=== PATIENT | male | born 2005 | race African-American/Black ===

== ENCOUNTER 2024-10-18 12:43 | Emergency (ER) | payer SELFPAY ==
--- OUTSIDE RECORDS SUMMARY | 2024-10-18 12:47 | XMS REPORT | Continuity of Care Document ---
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 [id number] 2018 00:00:00 Encounters Start Date/Time End Date/Time Encounter Type Admission Type Attending Clinicians Care Facility Care Department Encounter ID Source 2023-05-08 13:41:00 2023-05-08 17:39:00 Emergency ER Pao Avelar [facility] [id number] [facility] 2021-09-26 02:24:00 2021-09-26 02:24:00 Outpatient SHIMEK_STACY [facility] [id number] [facility] 2021-01-02 04:17:00 2021-01-02 04:17:00 Outpatient SHIMEK_STACY [facility] [id number] [facility] 2017-12-30 09:37:00 2017-12-30 09:37:00 Outpatient SHIMEK_MARY _[facility] [id number] [facility] 2015-04-12 11:29:00 2015-04-12 11:29:00 Outpatient ROCIO BARTH [facility] [id number] [facility] 2004-06-25 21:37:00 2004-06-26 02:10:00 Emergency ER ZAHRA BURCIAGA [facility] [id number] [facility] 2003 09:51:00 2003 13:00:00 Inpatient ARLENE BOUDREAUX MAI [facility] [id number] [facility]
[2024-10-18] MEDS ORDERED: ONDANSETRON 4 MG (ODT) TAB ONE (14:35)
--- NOTE | 2024-10-18 15:09 | EDPHYS ---
Physician Documentation [facility] Name: Tony Vega Age: 19 yrs Sex: Male : 2005 Arrival Date: 10/18/2024 Time: 12:43 Bed 10 Private MD: ED Physician Emily Pineda HPI: 10/18 15:24 This 19 yrs old Black Male presents to ER via Ambulatory with complaints of Weakness, gb1 Nausea, Vomiting. 15:24 19-year-old -[place] male that felt nauseated at work and more weak. He states gb1 that he is felt this before but he is also felt worse for numbness. He denies any fever chills and he has not vomited but he is nauseous. No abdominal pain, back pain or testicular pain. No diarrhea.. Patient does vape and smoke marijuana.. Historical: - Allergies: 13:14 No Known Allergies; ko1 - Home Meds: 13:14 None [Active]; ko1 - PMHx: 13:14 None; ko1 - PSHx: 13:14 None; ko1 - Immunization history:: Adult Immunizations up to date. - Infectious Disease History:: Denies. - Social history:: Smoking status: Patient reports the use of cigarette tobacco products, denies chronic smoking, but will smoke occasionally, Patient uses street drugs, marijuana. Exam: 15:24 Constitutional: This is a well developed, well nourished patient who is awake, alert, gb1 and in no acute distress. Head/Face: Normocephalic, atraumatic. Eyes: Pupils equal round and reactive to light, extra-ocular motions intact. Lids and lashes normal. Conjunctiva and sclera are non-icteric and not injected. Cornea within normal limits. Periorbital areas with no swelling, redness, or edema. ENT: Nares patent. No nasal discharge, no septal abnormalities noted. Tympanic membranes are normal and external auditory canals are clear. Oropharynx with no redness, swelling, or masses, exudates, or evidence of obstruction, uvula midline. Mucous membranes moist. Neck: Trachea midline, no thyromegaly or masses palpated, and no cervical lymphadenopathy. Supple, full range of motion without nuchal rigidity, or vertebral point tenderness. No Meningismus. Chest/axilla: Normal chest wall appearance and motion. Nontender with no deformity. No lesions are appreciated. Cardiovascular: Regular rate and rhythm with a normal S1 and S2. No gallops, murmurs, or rubs. Normal PMI, no JVD. No pulse deficits. Respiratory: Lungs have equal breath sounds bilaterally, clear to auscultation and percussion. No rales, rhonchi or wheezes noted. No increased work of breathing, no retractions or nasal flaring. Abdomen/GI: Soft, non-tender, with normal bowel sounds. No distension or tympany. No guarding or rebound. No evidence of tenderness throughout. Skin: Warm, dry with normal turgor. Normal color with no rashes, no lesions, and no evidence of cellulitis. MS/ Extremity: Pulses equal, no cyanosis. Neurovascular intact. Full, normal range of motion. Neuro: Awake and alert, GCS 15, oriented to person, place, time, and situation. Cranial nerves II-XII grossly intact. Motor strength 5/5 in all extremities. Sensory grossly intact. Cerebellar exam normal. Normal gait. Vital Signs: 13:10 BP 126 / 75; Pulse 96; Resp 16; Temp 97.5; Pulse Ox 98% ; Weight 81.65 kg; Height 5 ft. ko1 9 in. ; 13:10 Body Mass Index 26.58 (81.65 kg, 175.26 cm) ko1 MDM: 13:21 Medical Screening Exam initiated gb1 15:24 ED course: 19-year-old male with nausea no vomiting no abdominal pain. Doubt acute gb1 appendicitis, acute cholecystitis or diverticulitis at this time. Patient is otherwise well-appearing and is clinically improved after the Zofran. Very low likelihood at this time for CT imaging recommendation but given explicit return precautions for the next 12 to 24 hours which is compliant with her discharge home today.. Administered Medications: 14:41 Drug: Ondansetron PO 4 mg PO once Route: PO; ss Disposition Summary: 10/18/24 15:09 Discharge Ordered Notes: Location: Home gb1 Problem: new gb1 Symptoms: have improved gb1 Condition: Stable gb1 Diagnosis - Nausea gb1 Followup: gb1 - With: Private Physician - When: - Reason: If symptoms return Discharge Instructions: - Discharge Summary Sheet gb1 - Nausea, Adult gb1 Forms: - Medication Reconciliation Form gb1 - Antibiotic Education gb1 - Prescription Opioid Use gb1 - Patient Portal Instructions gb1 - Leadership Thank You Letter gb1 Prescriptions: - Zofran 4 mg Oral Tablet - take 1 tablet ORAL route every 12 hours As needed; 20 tablet; Refills: 0, gb1 Product Selection Permitted Signatures: Telma Zapata RN RN ss Shaneka Matamoros RN RN ko1 Emily Pineda MD MD gb1 Corrections: (The following items were deleted from the chart) 13:18 13:14 Social history: Smoking status: Patient denies any tobacco usage or history of. ko1 ko1
--- NOTE | 2024-10-18 15:09 | ER ---
Nurse's Notes [facility] Name: Tony Vega Age: 19 yrs Sex: Male : 2005 Arrival Date: 10/18/2024 Time: 12:43 Bed 10 Private MD: Diagnosis: Nausea Presentation: 10/18 13:10 Chief complaint: Patient states: was at work and started feeling nauseous and weak a ko1 couple of hours ago. Coronavirus screen: At this time, the client does not indicate any symptoms associated with coronavirus-19. Ebola Screen: No symptoms or risks identified at this time. Initial Sepsis Screen: Does the patient meet any 2 criteria? No. Patient's initial sepsis screen is negative. Does the patient have a suspected source of infection? No. Patient's initial sepsis screen is negative. Risk Assessment: Do you want to hurt yourself or someone else? Patient reports no desire to harm self or others. Onset of symptoms was October 18, 2024. 13:10 Method Of Arrival: Ambulatory ko1 13:10 Acuity: DENYS 3 ko1 Triage Assessment: 13:14 General: Appears in no apparent distress. Behavior is calm, cooperative, appropriate ko1 for age. Pain: Denies pain. Historical: - Allergies: 13:14 No Known Allergies; ko1 - Home Meds: 13:14 None [Active]; ko1 - PMHx: 13:14 None; ko1 - PSHx: 13:14 None; ko1 - Immunization history:: Adult Immunizations up to date. - Infectious Disease History:: Denies. - Social history:: Smoking status: Patient reports the use of cigarette tobacco products, denies chronic smoking, but will smoke occasionally, Patient uses street drugs, marijuana. Screenin:42 Abuse screen: Denies threats or abuse. Denies injuries from another. Nutritional ss screening: No deficits noted. Tuberculosis screening: Never had TB. Assessment: 14:42 General: Appears in no apparent distress. comfortable, Behavior is calm, cooperative. 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 Respiratory: Airway is patent Respiratory effort is even, unlabored. GI: Reports nausea. Derm: Skin is intact, is healthy with good turgor, Skin is pink, warm \T\ dry. normal. Vital Signs: 13:10 BP 126 / 75; Pulse 96; Resp 16; Temp 97.5; Pulse Ox 98% ; Weight 81.65 kg; Height 5 ft. ko1 9 in. ; 13:10 Body Mass Index 26.58 (81.65 kg, 175.26 cm) ko1 ED Course: 12:46 Patient arrived in ED. mr 12:46 Emily Pineda MD is Attending Physician. gb1 13:14 Triage completed. ko1 13:14 Arm band placed on right wrist. Patient placed in waiting room, Patient notified of ko1 wait time. 14:41 Telma Zapata, RN is Primary Nurse. ss 14:42 Patient has correct armband on for positive identification. Bed in low position. ss 15:44 No provider procedures requiring assistance completed. Patient did not have IV access ss during this emergency room visit. Administered Medications: 14:41 Drug: Ondansetron PO 4 mg PO once Route: PO; ss Medication: 14:42 VIS not applicable for this client. ss Outcome: 15:09 Discharge ordered by . gb1 15:44 Discharged to home ambulatory, ss 15:44 Condition: good 15:44 Discharge instructions given to patient, Instructed on discharge instructions, follow up and referral plans. medication usage, Demonstrated understanding of instructions, follow-up care, medications, Prescriptions given X 1, 15:46 Patient left the ED. ss Signatures: Kassidy Garcia, Reg Reg Telma Zapata, RN RN ss Shaneka Matamoros RN RN ko1 Emily Pineda MD MD gb Corrections: (The following items were deleted from the chart) 13:18 13:14 Social history: Smoking status: Patient denies any tobacco usage or history of. ko1 ko1 14:43 14:41 No provider procedures requiring assistance completed. ss ss 14:43 14:41 Patient did not have IV access during this emergency room visit. Patient ss admitted, IV remains in place. ss
[2024-10-18 15:52] VITALS: BP 126/75; TEMP 97.5; O2SAT 98
== END 2024-10-18 15:46 | disposition home or self-care (01) ==
LOC: ER 12:43
DX: R11.0 Nausea (principal); R53.1 Weakness
CPT/HCPCS: 99283; Q0162